=== PATIENT | female | born 1965 | race Caucasian/White ===

== ENCOUNTER → 2016-07-06 | Outpatient (CLI) | payer BC ==
--- NOTE | 2016-07-06 19:12 | MR ---
Brain MR with and without contrast HISTORY: Altered mental status Multiplanar multisequence and postcontrast images through the brain following 15 cc MultiHance IV. Correlation to MRI brain 03 June 2010 There is no restricted diffusion. Cortical atrophy is likely age-related. No abnormal enhancement fol lowing contrast administration. Corpus callosum, pituitary, cervical medullary junction, cerebellopon clarissa angles are stable. There is no hemorrhage or hydrocephalus. The orbits show symmetric appearance . Scattered hyperintensities within the deep white matter again noted on inversion recovery and T2-we ighted sequences, there may be some slight increase in number compared to prior, there are approximat brook 20-30 lesions. The orbits show symmetric appearance. IMPRESSION: Essentially stable exam. Nonspecific white matter demyelination is stable. Correlate for migraine headaches, hypertension, vasculitis, multiple sclerosis is not excluded.
== END | disposition home or self-care (01) ==
LOC: RADMRIMAIN 13:08
PROVIDERS: ATTEND Family Medicine
DX: R41.82 Altered mental status, unspecified (principal)
CPT/HCPCS: 70553; A9577

== ENCOUNTER → 2016-10-08 | Outpatient (CLI) | payer BC | END | disposition home or self-care (01) | LOC: RADECHMAIN 12:57 | PROVIDERS: ATTEND Family Medicine | DX: I47.1 Supraventricular tachycardia (principal) | CPT/HCPCS: 93270; 93271 ==

== ENCOUNTER 2019-05-10 11:15 | Day surgery (SDC) | payer BC ==
[2019-05-06 08:31] VITALS: BMI 35.2
[~2019-05-10 11:15] MED LIST: LACTATED RINGERS 1,000 ML IV SCH; LIDOCAINE 1% 20 ML VIAL (10MG/ML) FOR IV START INTRADERMA PRN; MIDAZOLAM 2 MG/2 ML VIAL IV PRN
[2019-05-10 11:48] VITALS: TEMP 98.9
[2019-05-10] MEDS ORDERED: LIDOCAINE 1% INJ 10MG/ML (20 ML MDV) ONE (12:14)
[2019-05-10] MEDS ORDERED: KETAMINE 10 MG/ML 20 ML VIAL ONE (12:14)
[2019-05-10] MEDS ORDERED: PROPOFOL 10 MG/ML 20 ML VIAL IV ONE (12:14)
[2019-05-10 12:23] LABS: Basophils # (A) 0.1 k/uL (0-0.2); Basophils % (A) 1 %; Eosinophils # (A) 0.3 k/uL (0-0.7); Eosinophils % (A) 4 %; HCT 41.1 % (34.0-46.0); HGB 14.4 gm/dL (11.4-16.0); Lymphocytes # (A) 1.6 k/uL (1.0-4.8); Lymphocytes % (A) 23 %; MCH 32.4 pg (25.0-35.0); MCV 92.5 fL (80.0-100.0); Mean Platelet Volume 6.8; Monocytes # (A) 0.4 k/uL (0-1.0); Monocytes % (A) 5 %; Neutrophils # (A) 4.5 k/uL (1.3-7.7); Neutrophils % (A) 65 %; Platelet Count 297 k/uL (150-450); RBC 4.44 m/uL (3.80-5.40); RDW 12.1 % (11.5-15.5); WBC 6.9 k/uL (3.8-10.6)
[2019-05-10 12:38] LABS: African American GFR (CKD) >90 (>60 ml/min/1.73 sqM); Anion Gap 9 mmol/L; Blood Urea Nitrogen 8 mg/dL (7-17); Calcium 9.3 mg/dL (8.4-10.2); Carbon Dioxide 25 mmol/L (22-30); Chloride 106 mmol/L (98-107); Glucose 97 mg/dL (74-99); Non-African American GFR(CKD) >90 (>60 ml/min/1.73 sqM); Sodium 140 mmol/L (137-145)
--- NOTE | 2019-05-10 12:56 | P.PCN ---
Date of Procedure: 05/10/19 Description of Procedure: BRIEF HISTORY: Patient is a 54-year-old female presenting for outpatient colonoscopy for screening for malignant neoplasm of the colon. She reports remote history of colonoscopy over 10 years ago. Reports chronic constipation at baseline as well as hemorrhoids with intermittent rectal bleeding. PROCEDURE PERFORMED: Colonoscopy with polypectomy. PREOPERATIVE DIAGNOSIS: Screening for malignant neoplasm of the colon. ESTIMATED BLOOD LOSS: Minimal. IV sedation per Anesthesia. PROCEDURE: After informed consent was obtained, the patient, was brought into the endoscopy unit. IV sedation was administered by Anesthesia under continuous monitoring. Digital rectal examination was normal, external nonthrombosed hemorrhoids noted. Initially the Olympus CF-190 flexible video colonoscope was then inserted in the rectum, gradually advanced into the cecum without any difficulty. Careful examination was performed as the scope was gradually being withdrawn. Ileocecal valve and the appendiceal orifice were visualized and appeared normal. Prep was excellent. The terminal ileum was intubated and appeared normal. Mucosa of the cecum, ascending colon, transverse colon, descending colon, sigmoid colon, and rectum appeared normal. Diminutive 2 mm sigmoid polyp removed with cold forcep polypectomy. Diminutive 1 mm rectal polyp with cold forcep polypectomy. Retroflexion was performed in the rectum and no lesions were seen, low-grade internal hemorrhoids and skin tag noted. The patient tolerated the procedure well. IMPRESSION: 2 diminutive polyps removed from the sigmoid colon and rectum with cold forcep polypectomy. Nonthrombosed external hemorrhoids and low-grade internal hemorrhoids. RECOMMENDATIONS: Findings of this examination were discussed with the patient and her . Okay to resume diet. Okay to resume medications including warfarin therapy. Await pathology from polypectomy. Would recommend repeat colonoscopy in 7-10 years pending pathology from polypectomy..
[2019-05-10 13:33] VITALS: BP 105/66; PULSE 67; RESP 18
== END 2019-05-10 13:55 | disposition home or self-care (01) ==
LOC: ORWHC2ENDO 11:15
PROVIDERS: ATTEND Internal Medicine
DX: D12.8 Benign neoplasm of rectum (principal); K63.5 Polyp of colon; K64.8 Other hemorrhoids; K64.4 Residual hemorrhoidal skin tags; K62.5 Hemorrhage of anus and rectum; Z87.891 Personal history of nicotine dependence; K21.9 Gastro-esophageal reflux disease without esophagitis; I25.10 Atherosclerotic heart disease of native coronary artery without angina pectoris; Z95.2 Presence of prosthetic heart valve; K58.9 Irritable bowel syndrome, unspecified; Z95.1 Presence of aortocoronary bypass graft; Z79.01 Long term (current) use of anticoagulants; Z79.891 Long term (current) use of opiate analgesic; Z79.899 Other long term (current) drug therapy; Z88.6 Allergy status to analgesic agent
CPT/HCPCS: 88305; 80048; 85025; 45380; J2001; J2704

== ENCOUNTER → 2020-08-02 | Outpatient (CLI) | payer BC ==
--- NOTE | 2020-08-02 08:57 | US ---
EXAMINATION TYPE: US abdomen complete DATE OF EXAM: 08/02/2020 COMPARISON: NONE CLINICAL HISTORY: R74.8 abn levels of serum enzymes. 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 EXAM MEASUREMENTS: Liver Length: 14.9 cm Gallbladder Wall: 0.26 cm CBD: 0.2 cm Spleen: 8.1 cm Right Kidney: 10.6 x 5.6 x 4.1 cm Left Kidney: 9.7 x 5.0 x 4.6 cm Pancreas: hyperechoic Liver: hyperechoic irregular area noted medial right lobe = 1.3 x 1.0 x 0.8cm and may be possible he mangioma Gallbladder: multiple, non mobile shadowing stones seen within gallbladder Evidence for sonographic Layne's sign: no CBD: wnl Spleen: wnl Right Kidney: 2 cysts seen with larger simple cyst seen medially = 2.4 x 2.1 x 2.2cm Left Kidney: No hydronephrosis or masses seen Upper IVC: wnl Abd Aorta: wnl IMPRESSION: 1. Cholelithiasis. 2. Nonspecific hepatic lesion could reflect hemangioma. Further characterization with CT is advised. 3. Right renal cysts.
== END | disposition home or self-care (01) ==
LOC: RADUSWWP 06:56
PROVIDERS: ATTEND Family Medicine
DX: K80.20 Calculus of gallbladder without cholecystitis without obstruction (principal); N28.1 Cyst of kidney, acquired
CPT/HCPCS: 76700

== ENCOUNTER → 2024-07-28 | Outpatient (CLI) | payer OTHER ==
--- NOTE | 2024-07-28 11:37 | CA ---
Stress Echo Report Alicia Liu Age: 59 Gender: F : 1965 Exam Date: 07/28/2024 10:17 Exam Location: [facility] Ht (in): 60 Wt (lb): 194 Ordering Physician: Tri Rogers MD Referring Physician: Larry Wharton MD ([id number]) Elevating Grader Operator: [email or web address], Technologist Procedure CPT: Indication: r069 unspecified abnormalities of breathing ICD-9 Codes: Rhythm: Patient History: Cardiac Medications: Medications in past 24 hours: Contrast: N/A Stress Results Protocol: Aidan Total dose(mL): NA Exercise Duration (min:sec): 2:[address] Depression (mm): Angina Score: Guerrero Score: METS: 3.8 Resting HR: 81 Resting BP: 120 / 79 Peak HR: 156 Peak BP: 173 / 81 Max Predicted HR: 161 97 % Max Predicted HR Target HR: 137 Double Product: [id number] Stress Summary: BP Response: Reason for Termination: Reached target heart rate or work-load Cardiac Symptoms: DYSPNEA ECG Analysis Resting ECG: Stress ECG: Arrhythmia: Echo Analysis Resting Echo: Peak Echo Analysis: MEASUREMENTS (Male/Female) Normal Values CONCLUSIONS Baseline EKG revealed sinus mechanism without significant ST-T changes. Patient walked for only 2 minutes and 42 seconds developed fatigue and shortness of breath. There was a lot of artifact EKG did not reveal any ST segment changes to indicate ischemia. Rare isolated PVC was noted. Very poor exercise capacity but negative stress test for ischemia by EKG criteria Baseline echo images revealed normal wall motion and wall thickening of all segments. There is limited exercise capacity but at peak exercise and a heart rate of 147 bpm, there was no evidence suggest ischemia and there was good augmentation of left ventricular wall motion and wall thickening of all segments suggesting that there is no evidence of stress-induced ischemia on the study. Final impression: Extremely poor exercise capacity but at a heart rate of 147 bpm and less than 3 minutes of exercise there is no evidence suggest ischemia either by EKG or echocardiographic criteria Dr. Sneha Gonsalez MD (Electronically Signed) Final Date: 28 Jul 2024 11:36
== END | disposition home or self-care (01) ==
LOC: RADNMMAIN 09:40
PROVIDERS: ATTEND Family Medicine
DX: R06.9 Unspecified abnormalities of breathing (principal); I49.3 Ventricular premature depolarization
CPT/HCPCS: 93351